=== PATIENT | male | born 1970 ===

== ENCOUNTER 2017-04-17 13:50 | Emergency (ER) | payer OTHER ==
[2017-04-17 15:18] LABS: ABS Basophils 0.1 10^3/ul (0-0.2); ABS Eosinophils 0.1 10^3/ul (0-0.6); ABS Lymphocytes 1.8 10^3/ul (1.0-4.8); ABS Monocytes 0.7 10^3/ul (0-0.8); ABS Nucleated RBC 0 10^3/ul; Eosinophil % 0.5 % (0-6); Hematocrit 43 % (42-52); Hemoglobin 14.5 g/dl (14.0-18.0); Lymphocyte % 15.3 % (25-47); Mean Corpuscular HGB Conc 34 g/dl (31-36); Mean Corpuscular Hemoglobin 30 pg (27-31); Mean Corpuscular Volume 89 fL (80-94); Mean Platelet Volume 8 um3 (7.4-10.4); Nucleated Red Blood Cells % 0; Platelet Count 173 10^3/ul (150-450); Red Blood Count 4.86 10^6/ul (4.0-5.4); Red Cell Distribution Width 13 % (10.5-15); White Blood Count 11.6 10^3/ul (3.5-10.8)
--- NOTE | 2017-04-17 15:31 | RAD ---
INDICATION: Syncope. COMPARISON: There are no prior studies available for comparison. TECHNIQUE: Contiguous axial sections of the brain were obtained from the skull base to the vertex without contrast. FINDINGS: The ventricles, cisterns and sulci are within normal limits. No significant focal abnormality or mass effect is seen. There is no evidence for hemorrhage. No significant focal osseous abnormality is seen. The visualized portion of the paranasal sinuses and mastoid air cells appear clear. IMPRESSION: NO EVIDENCE FOR ACUTE INTRACRANIAL ABNORMALITY.
--- NOTE | 2017-04-17 15:34 | RAD ---
INDICATION: Syncope. COMPARISON: There are no prior studies available for comparison. TECHNIQUE: 2 portable films of the chest were obtained. FINDINGS: Cardiac and mediastinal contours appear to be within normal limits. The lungs are clear. No pleural effusion is seen. IMPRESSION: NO EVIDENCE FOR ACUTE DISEASE.
[2017-04-17] MEDS ORDERED: NS 0.9% 1000 ML* 1,000 ML IV ONE (18:02)
[2017-04-17] MEDS ORDERED: Iodixanol* (CONTRAST) 320 MG/ML 100 ML SDV IV ONE (18:33)
--- NOTE | 2017-04-17 19:17 | RAD ---
INDICATION: Back pain and syncope evaluate aorta for aneurysm or dissection. COMPARISON: There are no prior studies available for comparison. TECHNIQUE: A CT angiogram of the abdomen and pelvis was performed with intravenous contrast following intravenous injection of 100 ml of Visipaque 320 nonionic contrast. Contiguous axial sections were obtained from the lung bases through the symphysis pubis. Images were reconstructed in the coronal and sagittal planes and in a 3-D volume rendered reformatted. FINDINGS: CT OF THE ABDOMEN AND PELVIS: There is mild dependent bilateral lower lobe subsegmental atelectasis. No pleural effusion is seen. The liver and spleen are normal in size without significant focal abnormality. The gallbladder appears contracted. No calcified gallstones are seen. The pancreas appears to be within normal limits. The kidneys and adrenal glands are normal in size. No hydronephrosis is seen. No significant focal renal abnormality is seen. No significant enlarged retroperitoneal lymph nodes are seen. The stomach, small and large bowel appear nondistended. The cecum is high in position in the right upper quadrant. The appendix appears to be within normal limits. There is no evidence for diverticulitis or colitis. No free intraperitoneal air or fluid is seen. There is anterior subluxation of L4 relative to L5 of approximately 1.3 cm consistent with grade II anterior spondylolisthesis. There is bilateral spondylolysis at the L4 level. There is severe disc space narrowing subchondral sclerosis and erosive change at the L4-L5 level. The remaining disc spaces appear maintained. CT ANGIOGRAM OF THE ABDOMINAL AORTA: The abdominal aorta is normal in caliber and demonstrates homogeneous contrast opacification. The celiac, superior and inferior mesenteric arteries appear widely patent. There is a single right and 2 left renal arteries which appear widely patent. The iliac veins and inferior vena cava appear enlarged. There is reflux of contrast into the hepatic veins. The heart is within normal limits in size. No pericardial effusion is seen. IMPRESSION: 1. NO EVIDENCE FOR AORTIC DISSECTION. 2. ENLARGED INFERIOR VENA CAVA AND REFLUX OF CONTRAST INTO THE HEPATIC VEINS SUGGESTING THE POSSIBILITY OF RIGHT RIGHT-SIDED HEART DISEASE. RECOMMEND CLINICAL CORRELATION. 3. 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 IN ADDITION THERE IS SEVERE DEGENERATIVE DISC DISEASE AT THE L4-L5 LEVEL. THERE ARE SOME EROSIVE ENDPLATE CHANGES AT THIS LEVEL WHICH IS LIKELY SECONDARY TO THE DEGENERATIVE DISC CHANGES. THE POSSIBILITY OF AN INFECTIOUS PROCESS IS MUCH LESS LIKELY. IF THIS IS OF CLINICAL CONCERN CONSIDER MR IMAGING FOR FURTHER EVALUATION.
[2017-04-17] MEDS ORDERED: Dexamethasone IV* 4 MG/ML 1 ML (4 MG) IM ONE (19:36)
--- NOTE | 2017-04-17 19:46 | ED ---
Gatito Schuler Natalie, scribed for Grzegorz Drew MD on 04/17/17 at 1453 . Syncope/Near Syncope - HPI Summary HPI Summary: The pt is a 47 y/o M BIB [facility] and [employer] to the ED c/o syncope while smoking a cigarette at 12:00 today. The pt was standing up talking to someone and felt his legs weakening, causing him to fall. He currently has constant left low back pain that is rated 8/10 while lying down. The pain is aggravated by movement and is alleviated by nothing. The patient has treated the pain with Ibuprofen [employer]. Pt additionally c/o numbness in feet. Pt denies CP , palpitations, and headache. Denies saddle anesthesia or urinary retention. He has had lower back pain for about 15 years and is supposed to have spinal effusion. Narcan was administered 2x IM on scene with positive results. - History Of Current Complaint Chief Complaint: EDSyncope Hx Obtained From: Patient Onset/Duration: Sudden Onset, Lasting Hours - occurred at 12:00 Activity At Onset: Other - standing up smoking a cigarette Aggravating Factor(s): Other - movement Alleviating Factor(s): Nothing Associated Signs And Symptoms: Numbness - in feet, Pain - low back pain - Allergies/Home Medications Allergies/Adverse Reactions: Allergies Allergy/AdvReac Type Severity Reaction Status Date / Time No Known Allergies Allergy Verified 04/17/17 18:53 PMH/Surg Hx/FS Hx/Imm Hx Previously Healthy: No Cardiovascular History: Reports: Hx Hypercholesterolemia Musculoskeletal History: Reports: Hx Back Problems Infectious Disease History: No Infectious Disease History: Denies: Traveled Outside the [place] in Last 30 Days - Family History Known Family History: Negative: Cardiac Disease, Hypertension - Social History Alcohol Use: None Substance Use Type: Reports: None Smoking Status (MU): Heavy Every Day Tobacco Smoker Review of Systems Negative: Palpitations, Chest Pain Positive: Headache, Weakness - in legs, Numbness - in feet, Syncope All Other Systems Reviewed And Are Negative: Yes Physical Exam - Summary Physical Exam Summary: Appearance: Well-appearing, Well-nourished Skin: Warm, dry HEENT: Normal, Extraocular movements intact, PERRL Mucus membranes moist Neck: Supple, nontender Respiratory: Lung sounds clear to auscultation Cardiovascular: Normal, Normal pulses bilaterally Abdomen: Soft, nontender, no distension, No pulsatile masses Bowel: Present Musculoskeletal: Normal, Strength/ROM Intact Neurological: Normal, A&Ox3 Psychiatric: Normal Triage Information Reviewed: Yes Vital Signs On Initial Exam: Initial Vitals Temp Pulse Resp BP Pulse Ox 97.3 F 71 16 108/60 100 04/17/17 13:58 04/17/17 13:58 04/17/17 13:58 04/17/17 13:58 04/17/17 13:58 Vital Signs Reviewed: Yes - Alexis Coma Scale Coma Scale Total: 15 Diagnostics - Vital Signs Vital Signs Temp Pulse Resp BP Pulse Ox 04/17/17 14:00 68 18 99 04/17/17 13:58 97.3 F 72 10 108/60 99 - Laboratory Lab Results: Lab Results 04/17/17 04/17/17 04/17/17 Range/Units 15:09 15:09 15:09 WBC 11.6 H (3.5-10.8) 10^3/ul RBC 4.86 (4.0-5.4) 10^6/ul Hgb 14.5 (14.0-18.0) g/dl Hct 43 (42-52) % MCV 89 (80-94) fL MCH 30 (27-31) pg MCHC 34 (31-36) g/dl RDW 13 (10.5-15) % Plt Count 173 (150-450) 10^3/ul MPV 8 (7.4-10.4) um3 Neut % (Auto) 77.8 (38-83) % Lymph % (Auto) 15.3 L (25-47) % [place] % (Auto) 5.8 (1-9) % Eos % (Auto) 0.5 (0-6) % Baso % (Auto) 0.6 (0-2) % Absolute Neuts (auto) 9.0 H (1.5-7.7) 10^3/ul Absolute Lymphs (auto) 1.8 (1.0-4.8) 10^3/ul Absolute Monos (auto) 0.7 (0-0.8) 10^3/ul Absolute Eos (auto) 0.1 (0-0.6) 10^3/ul Absolute Basos (auto) 0.1 (0-0.2) 10^3/ul Absolute Nucleated RBC 0 10^3/ul Nucleated RBC % 0 D-Dimer, Quantitative < 200 (Less Than 230) ng/mL Sodium 137 (133-145) mmol/L Potassium 4.4 (3.5-5.0) mmol/L Chloride 107 (101-111) mmol/L Carbon Dioxide 27 (22-32) mmol/L Anion Gap 3 (2-11) mmol/L BUN 14 (6-24) mg/dL Creatinine 1.44 H (0.67-1.17) mg/dL Est GFR ( Amer) 68.2 (>60) Est GFR (Non-Af Amer) 53.0 (>60) BUN/Creatinine Ratio 9.7 (8-20) Glucose 101 H (70-100) mg/dL Lactic Acid (0.5-2.0) mmol/L Calcium 8.5 L (8.6-10.3) mg/dL Magnesium 2.1 (1.9-2.7) mg/dL Total Bilirubin 1.30 H (0.2-1.0) mg/dL AST 26 (13-39) U/L ALT 20 (7-52) U/L Alkaline Phosphatase 98 (34-104) U/L Troponin I 0.00 (<0.04) ng/mL Total Protein 6.8 (6.4-8.9) g/dL Albumin 4.0 (3.2-5.2) g/dL Globulin 2.8 (2-4) g/dL Albumin/Globulin Ratio 1.4 (1-3) TSH 0.50 (0.34-5.60) mcIU/mL 04/17/17 Range/Units 15:09 WBC (3.5-10.8) 10^3/ul RBC (4.0-5.4) 10^6/ul Hgb (14.0-18.0) g/dl Hct (42-52) % MCV (80-94) fL MCH (27-31) pg MCHC (31-36) g/dl RDW (10.5-15) % Plt Count (150-450) 10^3/ul MPV (7.4-10.4) um3 Neut % (Auto) (38-83) % Lymph % (Auto) (25-47) % [place] % (Auto) (1-9) % Eos % (Auto) (0-6) % Baso % (Auto) (0-2) % Absolute Neuts (auto) (1.5-7.7) 10^3/ul Absolute Lymphs (auto) (1.0-4.8) 10^3/ul Absolute Monos (auto) (0-0.8) 10^3/ul Absolute Eos (auto) (0-0.6) 10^3/ul Absolute Basos (auto) (0-0.2) 10^3/ul Absolute Nucleated RBC 10^3/ul Nucleated RBC % D-Dimer, Quantitative (Less Than 230) ng/mL Sodium (133-145) mmol/L Potassium (3.5-5.0) mmol/L Chloride (101-111) mmol/L Carbon Dioxide (22-32) mmol/L Anion Gap (2-11) mmol/L BUN (6-24) mg/dL Creatinine (0.67-1.17) mg/dL Est GFR ( Amer) (>60) Est GFR (Non-Af Amer) (>60) BUN/Creatinine Ratio (8-20) Glucose (70-100) mg/dL Lactic Acid 1.0 (0.5-2.0) mmol/L Calcium (8.6-10.3) mg/dL Magnesium (1.9-2.7) mg/dL Total Bilirubin (0.2-1.0) mg/dL AST (13-39) U/L ALT (7-52) U/L Alkaline Phosphatase (34-104) U/L Troponin I (<0.04) ng/mL Total Protein (6.4-8.9) g/dL Albumin (3.2-5.2) g/dL Globulin (2-4) g/dL Albumin/Globulin Ratio (1-3) TSH (0.34-5.60) mcIU/mL Result Diagrams: 04/17/17 15:09 04/17/17 15:09 Lab Statement: Any lab studies that have been ordered have been reviewed, and results considered in the medical decision making process. - Radiology CXR Xray Interpretation: No Acute Changes - No evidence for acute disease. ED physician has reviewed this report. Radiology Interpretation Completed By: Radiologist - CT CT Brain CT Interpretation: No Acute Changes - No evidence for acute intracranial abnormalities. ED physician has reviewed this report. CT Interpretation Completed By: Radiologist - EKG 14:54 Cardiac Rate: NL EKG Rhythm: Sinus Rhythm - 66 BPM Course/Dx Assessment/Plan: no acute abnormalities on ct, spondylolisthesis seen consistent with history and pt's report of surgical planning for spinal fusion. No saddle anesthesia or lower ext weakness, aorta normal caliber, instructed to fu with neurosurgeon and pmd. agrees to and understands dc instructins. - Diagnoses Provider Diagnoses: Syncope, Chronic lower back pain Discharge - Discharge Plan Condition: Critical Disposition: LAW ENFORCEMENT/COURT Patient Education Materials: Spondylolisthesis (ED) Referrals: No Primary Care Phys,NOPCP [Primary Care Provider] - Additional Instructions: PLEASE MAKE AN APPOINTMENT FIRST THING IN THE MORNING TO BE SEEN BY YOUR NEUROSURGEON WITHIN 1-2 WEEKS PLEASE RETURN IMMEDIATELY TO THE ER IF YOU HAVE ANY WORSENING OR CONCERNING SYMPTOMS PLEASE MAKE AN APPOINTMENT TO BE SEEN BY YOUR PRIMARY CARE DOCTOR WITHIN 1 WEEK The documentation as recorded by the Gatito sanon Natalie accurately reflects the service I personally performed and the decisions made by me, Grzegorz Drew MD.
[2017-04-17 20:23] VITALS: BP 110/65
== END 2017-04-17 20:21 ==
LOC: ED 13:50
DX: M54.5 Low back pain (principal); R51 Headache; R53.1 Weakness; R55 Syncope and collapse; F17.210 Nicotine dependence, cigarettes, uncomplicated
CPT/HCPCS: 36415; 70450; 71045; 74174; 80053; 83605; 83735; 84443; 84484; 85025; 85379; 93005; 96372; 99283; J1100; Q9967